=== PATIENT | female | born 1990 | race Caucasian/White ===

== ENCOUNTER 2019-11-07 06:54 | Emergency (ER) | payer OTHER, SELFPAY ==
[~2019-11-07] VITALS: Ht 160 cm; Wt 54.1 kg
[2019-11-07] MEDS ORDERED: mvi (07:03)
[2019-11-07 07:48] LABS: BASO % 0.9 % (0.0-1.0); EOS % 0.9 % (0.0-3.0); HEMATOCRIT 40.9 % (36.0-47.0); HEMOGLOBIN 13.8 g/dl (12.0-15.5); LYMPH % 30.1 % (24.0-44.0); MEAN CORPUSCULAR HEMOGLOBIN 31.7 pg (27.0-33.0); MEAN CORPUSCULAR HGB CONC 33.7 g/dl (32.0-36.5); MONO # 0.3 10^3/uL (0.0-0.8); MONO % 8.1 % (0.0-5.0); NEUTROPHILS # 2.1 10^3/uL (1.5-8.5); NEUTROPHILS % 59.7 % (36.0-66.0); PLATELET COUNT, AUTOMATED 195 10^3/uL (150-450); RED BLOOD COUNT 4.35 10^6/uL (4.00-5.40); WHITE BLOOD COUNT 3.5 10^3/uL (4.0-10.0)
[2019-11-07 08:18] LABS: FREE T4 1.41 NG/DL (0.76-1.46); THYROID STIMULATING HORMONE 1.44 uIU/ML (0.358-3.740)
[2019-11-07 09:00] VITALS: BP 104/62
--- NOTE | 2019-11-07 16:24 | ECGEPIP ---
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
== END 2019-11-07 09:09 | disposition home or self-care (01) ==
LOC: M ED 06:54
DX: R00.2 Palpitations (principal); K21.9 Gastro-esophageal reflux disease without esophagitis

== ENCOUNTER → 2019-11-08 | Outpatient (CLI) | payer OTHER, SELFPAY ==
[~2019-11-08] MED LIST: CARA1TAB6 PO; FAMOTID; IBUP200C33 PO; OMEP-218 PO; PROT1TAB2 PO; mvi
== END ==
LOC: M LABSMTC 14:19
PROVIDERS: ATTEND Family Medicine
DX: Z03.818 Encounter for observation for suspected exposure to other biological agents ruled out (principal); Z11.59 Encounter for screening for other viral diseases
CPT/HCPCS: C9803; U0003

== ENCOUNTER 2019-11-09 01:26 | Emergency (ER) | payer SELFPAY ==
[~2019-11-09] VITALS: Ht 160 cm; Wt 52.3 kg
[2019-11-09 01:26] VITALS: BP 122/72
[~2019-11-09 01:26] MED LIST changes: -CARA1TAB6 PO; -FAMOTID; -IBUP200C33 PO; -OMEP-218 PO; -PROT1TAB2 PO
[2019-11-09] MEDS ORDERED: PROT1TAB2 PO (02:19)
--- NOTE | 2019-11-09 08:03 | REP ---
Portable chest x-ray: Single view. History: Burning in the lungs. Comparison chest x-ray: October 21, 2010. Findings: The lungs are well inflated and clear. The pleural angles are sharp. The pulmonary vasculature is not increased. Heart size is normal. No significant bony abnormality is seen. Impression: Negative portable chest x-ray. Electronically Signed by Wally Phelan MD 11/09/2019 07:55 A
== END 2019-11-09 02:31 | disposition home or self-care (01) ==
LOC: M ED 01:26
DX: K21.9 Gastro-esophageal reflux disease without esophagitis (principal)

== ENCOUNTER 2019-11-11 18:38 | Emergency (ER) | payer SELFPAY ==
[~2019-11-11] VITALS: Ht 160 cm; Wt 53.3 kg
[~2019-11-11 18:38] MED LIST changes: +PROT1TAB2 PO
[2019-11-11] MEDS ORDERED: IBUP200C33 PO (18:50)
[2019-11-11] MEDS ORDERED: NS 1,000 ML IV ONE (20:15)
[2019-11-11] MEDS ORDERED: GI COCKTAIL 50ML BTL(HYOSCYAMINE/MAALOX/LIDOCAINE VISCOUS)(1:3:1) PO ONE (20:15)
[2019-11-11 20:40] LABS: BASO % 0.9 % (0.0-1.0); EOS % 0.2 % (0.0-3.0); HEMATOCRIT 39.4 % (36.0-47.0); HEMOGLOBIN 13.3 g/dl (12.0-15.5); LYMPH # 1.5 10^3/uL (1.5-5.0); LYMPH % 32.4 % (24.0-44.0); MEAN CORPUSCULAR HEMOGLOBIN 31.7 pg (27.0-33.0); MEAN CORPUSCULAR HGB CONC 33.8 g/dl (32.0-36.5); MEAN CORPUSCULAR VOLUME 93.8 fl (80.0-96.0); MONO # 0.5 10^3/uL (0.0-0.8); MONO % 10.7 % (0.0-5.0); NEUTROPHILS # 2.5 10^3/uL (1.5-8.5); NEUTROPHILS % 55.6 % (36.0-66.0); PLATELET COUNT, AUTOMATED 194 10^3/uL (150-450); WHITE BLOOD COUNT 4.5 10^3/uL (4.0-10.0)
[2019-11-11] MEDS ORDERED: ISOVUE-370 76% 100ML VIAL As Ordered ONE (20:44)
--- NOTE | 2019-11-11 21:00 | ECGEPIP ---
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
[2019-11-11 21:14] LABS: CK-MB VALUE MASS < 1.0 NG/ML (<3.6); CPK CREATINE PHOSPHOKINASE 42 U/L (26-192); MB/CK RELATIVE INDEX 2.38 (< OR =4); TROPONIN I < 0.02 NG/ML (< 0.10)
--- NOTE | 2019-11-11 22:11 | REPVR ---
PROCEDURE INFORMATION: Exam: CT Angiography Chest With Contrast Exam date and time: 11/11/2019 8:54 PM Age: 29 years old Clinical indication: Shortness of breath; Additional info: R/O pe TECHNIQUE: Imaging protocol: Computed tomographic angiography of the chest with intravenous contrast. 3D rendering: MIP and/or 3D reconstructed images were created by the technologist. Radiation optimization: All CT scans at this facility use at least one of these dose optimization techniques: automated exposure control; mA and/or kV adjustment per patient size (includes targeted exams where dose is matched to clinical indication); or iterative reconstruction. Contrast material: ISOVUE 370; Contrast volume: 75 ml; Contrast route: INTRAVENOUS (IV); COMPARISON: ND Chest, 1 view 11/09/2019 1:53 AM FINDINGS: Pulmonary arteries: There are no pulmonary emboli. Aorta: There is no aortic dissection or aneurysm. Lungs: Punctate calcified granuloma left upper lobe. Pleural space: Unremarkable. No pneumothorax. No pleural effusion. Heart: Unremarkable. No cardiomegaly. No pericardial effusion. Lymph nodes: Unremarkable. No enlarged lymph nodes. Bones/joints: Unremarkable. No acute fracture. Soft tissues: Bilateral breast implants. IMPRESSION: 1. There is no aortic dissection or aneurysm. 2. There are no pulmonary emboli. 3. No acute pulmonary parenchymal abnormalities. 4. Findings consistent with remote intrathoracic granulomatous infection. Electronically signed by: Lane White On 11/11/2019 22:10:24 PM
[2019-11-11] MEDS ORDERED: CARA1TAB6 PO (22:40)
[2019-11-11] MEDS ORDERED: SUCRALFATE 1 GM TAB PO ONE (22:45)
[2019-11-11 22:48] VITALS: BP 115/74
== END 2019-11-11 22:56 | disposition home or self-care (01) ==
LOC: M ED 18:38
DX: R07.9 Chest pain, unspecified (principal); K21.9 Gastro-esophageal reflux disease without esophagitis; Z79.899 Other long term (current) drug therapy
CPT/HCPCS: 36415; 71275; 80047; 82550; 82553; 84484; 84702; 85025; 93005; 93041; 94760; 96360; 99285; Q9967

== ENCOUNTER 2019-11-14 11:18 | Emergency (ER) | payer SELFPAY ==
[~2019-11-14] VITALS: Ht 160 cm; Wt 52.9 kg
[~2019-11-14 11:18] MED LIST changes: +CARA1TAB6 PO; +IBUP200C33 PO
[2019-11-14 11:19] VITALS: BP 123/62
[2019-11-14] MEDS ORDERED: FAMOTID (11:26)
[2019-11-14] MEDS ORDERED: OMEP-218 PO (11:53)
== END 2019-11-14 12:23 | disposition home or self-care (01) ==
LOC: M ED 11:18
DX: K21.9 Gastro-esophageal reflux disease without esophagitis (principal); K92.1 Melena

== ENCOUNTER 2019-11-15 03:11 | Emergency (ER) | payer SELFPAY ==
[~2019-11-15] VITALS: Ht 160 cm; Wt 52.3 kg
[~2019-11-15 03:11] MED LIST changes: +FAMOTID; +OMEP-218 PO
[2019-11-15] MEDS ORDERED: GI COCKTAIL 50ML BTL(HYOSCYAMINE/MAALOX/LIDOCAINE VISCOUS)(1:3:1) PO ONE (05:15)
[2019-11-15 05:41] LABS: BASO % 0.8 % (0.0-1.0); EOS % 0.8 % (0.0-3.0); HEMOGLOBIN 13.3 g/dl (12.0-15.5); LYMPH # 1.2 10^3/uL (1.5-5.0); LYMPH % 31.4 % (24.0-44.0); MEAN CORPUSCULAR HEMOGLOBIN 32.3 pg (27.0-33.0); MEAN CORPUSCULAR HGB CONC 34.1 g/dl (32.0-36.5); MEAN CORPUSCULAR VOLUME 94.7 fl (80.0-96.0); MONO # 0.4 10^3/uL (0.0-0.8); MONO % 10.6 % (0.0-5.0); NEUTROPHILS # 2.1 10^3/uL (1.5-8.5); NEUTROPHILS % 56.1 % (36.0-66.0); PLATELET COUNT, AUTOMATED 195 10^3/uL (150-450); RED BLOOD COUNT 4.12 10^6/uL (4.00-5.40); WHITE BLOOD COUNT 3.8 10^3/uL (4.0-10.0)
[2019-11-15 06:09] LABS: ALBUMIN 3.9 GM/DL (3.2-5.2); ALT/SGPT 14 U/L (12-78); BILIRUBIN,DIRECT 0.3 MG/DL (0.0-0.2); BILIRUBIN,TOTAL 1.2 MG/DL (0.2-1.0); BLOOD UREA NITROGEN 8 MG/DL (7-18); CALCIUM LEVEL 9.1 MG/DL (8.5-10.1); CARBON DIOXIDE LEVEL 29 MEQ/L (21-32); CHLORIDE LEVEL 106 MEQ/L (98-107); CK-MB VALUE MASS < 1.0 NG/ML (<3.6); CPK CREATINE PHOSPHOKINASE 37 U/L (26-192); CREATININE FOR GFR 0.71 MG/DL (0.55-1.30); GLOMERULAR FILTRATION RATE > 60.0 (>60); GLUCOSE, FASTING 79 MG/DL (70-100); LIPASE 102 U/L (73-393); POTASSIUM SERUM 3.8 MEQ/L (3.5-5.1); SODIUM LEVEL 142 MEQ/L (136-145); TOTAL PROTEIN 7.4 GM/DL (6.4-8.2); TROPONIN I < 0.02 NG/ML (< 0.10)
[2019-11-15 06:16] VITALS: BP 120/76
--- NOTE | 2019-11-15 16:22 | ECGEPIP ---
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
== END 2019-11-15 06:17 | disposition home or self-care (01) ==
LOC: M ED 03:11
DX: K21.9 Gastro-esophageal reflux disease without esophagitis (principal); F41.9 Anxiety disorder, unspecified; Z79.899 Other long term (current) drug therapy